=== PATIENT | male | born 1970 | race Caucasian/White ===

== ENCOUNTER 2022-02-11 07:24 | Day surgery (SDC) | payer BC ==
[2022-02-08 09:29] LABS: Absolute Lymphocytes (CBC) 1.7 K/uL (0.7-4.9); Hematocrit 41.3 % (39.6-49.0); Lymphocytes % 36.7 % (15.3-44.8); MCV 96.8 fL (80-100); MPV 7.5 fL (7.6-11.3); RBC Red Blood Cell Count 4.27 M/uL (4.33-5.43)
[2022-02-08 09:43] LABS: Potassium 4.2 mmol/L (3.5-5.1)
--- NOTE | 2022-02-08 09:54 | RAD REPORT ---
EXAM DESCRIPTION: RAD - Chest Pa And Lat (2 Views) - 02/08/2022 9:35 am CLINICAL HISTORY: pre op for colonoscopy Chest pain. COMPARISON: No comparisons FINDINGS: The lungs are clear. The heart is normal in size. No displaced fractures. Hardware is pres ent proximal left humerus. IMPRESSION: No acute or concerning finding suspected.
--- NOTE | 2022-02-08 15:54 | EKG ---
Test Date: 2022-02-08 Test Time: 09:14:38 Lot Porter: MEET MEASUREMENT RESULTS: Intervals: Rate: 68 [place]: 168 QRSD: 86 QT: 402 QTc: 427 [place]: P: 55 [place]: 168 QRS: 55 T: 54 INTERPRETIVE STATEMENTS: Normal sinus rhythm Normal ECG No previous ECG available for comparison Electronically Signed On 02-08-22 15:54:25 SENIOR NATIONAL ACCOUNT MANAGER by Joel Hodges
[2022-02-11] MEDS ORDERED: Ringers Lactate 1,000 ML IV ONE (07:43)
[2022-02-11] MEDS ORDERED: propofoL 200 MG/20 ML VIAL IV ONE (08:37)
--- NOTE | 2022-02-11 09:03 | ENDO RPT ---
[address], [address] COLONOSCOPY PROCEDURE REPORT EXAM DATE: 02/11/2022 PATIENT NAME: Ethan Vital MR #: [id number] BIRTHDATE: 1970 ATTENDING: Terry Mcbride M.D. STATUS: outpatient MEAT STUFFER: Hermila Sandoval RN and Renu Fraire CST INDICATIONS: The patient is a 51 yr old Male here for a colonoscopy due to colon cancer screening PROCEDURE PERFORMED: Colonoscopy MEDICATIONS: Per Anesthesia. ESTIMATED BLOOD LOSS: None CONSENT: The patient understands the risks and benefits of the procedure and understands that these risks include, but are not limited to: sedation, allergic reaction, infection, perforation and/or bleeding. Alternative means of evaluation and treatment include, among others: physical exam, x-rays, and/or surgical intervention. The patient elects to proceed with this endoscopic procedure. DESCRIPTION OF PROCEDURE: During intra-op preparation period all mechanical medical equipment was checked for proper function. Hand hygiene and appropriate measures for infection prevention was taken. Procedure, possible complications, alternatives including, but not limited to possibility of bleeding, perforation, tear, infection, sepsis, need for surgery, need for blood transfusion, were explained to the patient. After the risks, benefits and alternatives of the procedure were thoroughly explained, Informed consent was verified, confirmed and timeout was successfully executed by the treatment team. The patient was placed in the left lateral position. A digital rectal exam was performed and revealed no abnormalities of the rectum. After appropriate level of anesthesia, the scope was passed. The EC-[id number] ([id number]) endoscope was introduced through the anus and advanced to the cecum, which was identified by the ileocecal valve. The quality of the prep was fair. The instrument was then slowly withdrawn as the colon was fully examined. Scope withdrawal time was 10 minutes. COLON FINDINGS: A normal appearing cecum, ileocecal valve, and appendiceal orifice were identified. the ascending, transverse, descending, sigmoid colon, and rectum appeared unremarkable. Retroflexed views revealed no abnormalities. The scope was then completely withdrawn from the patient and the procedure terminated. ADVERSE EVENTS: There were no complications. IMPRESSIONS: A normal appearing cecum, ileocecal valve, and appendiceal orifice were identified. the ascending, transverse, descending, sigmoid colon, and rectum appeared unremarkable RECOMMENDATIONS: 1. fiber rich diet 2. increase dietary water RECALL: Return in 10 year(s) for Colonoscopy. Terry Mcbride M.D. eSigned: Terry Mcbride M.D. 02/11/2022 9:03 AM cc: Axel Del Rosario MD CPT CODES: ICD9 CODES: PATIENT NAME: ZahraaEthan MR#: [id number]
[2022-02-11 09:26] VITALS: BP 109/62; TEMP 97.5; O2SAT 99
== END 2022-02-11 09:31 | disposition home or self-care (01) ==
LOC: OR 07:24
PROVIDERS: ATTEND Surgery
PROC: 0DJD8ZZ Inspection of Lower Intestinal Tract, Via Natural or Artificial Opening Endoscopic (ICD-10-PCS; principal; 2022-02-11 09:15)
DX: Z12.11 Encounter for screening for malignant neoplasm of colon (principal); I10 Essential (primary) hypertension; G47.33 Obstructive sleep apnea (adult) (pediatric)
CPT/HCPCS: 93005; 85025; 80048; 36415; 71046; 45378; J2704; J7120

== ENCOUNTER 2022-08-07 06:24 | Day surgery (SDC) | payer BC ==
[2022-08-06 16:12] LABS: Absolute Lymphocytes (CBC) 2.3 K/uL (0.7-4.9); Hematocrit 45.2 % (39.6-49.0); Lymphocytes % 26.5 % (15.3-44.8); MCV 98.1 fL (80-100); MPV 8.3 fL (7.6-11.3); RBC Red Blood Cell Count 4.61 M/uL (4.33-5.43)
[2022-08-06 16:38] LABS: Potassium 3.9 mEq/L (3.5-5.1)
[2022-08-07] MEDS ORDERED: Ringers Lactate 1,000 ML IV ONE (06:37)
[2022-08-07] MEDS: CEFAZOLIN SODIUM 1 GM/VIAL ONE ×2 (07:03→07:35)
[2022-08-07] MEDS ORDERED: propofoL 200 MG/20 ML VIAL IV ONE (07:19)
[2022-08-07] MEDS ORDERED: MIDAZOLAM HCL 2 MG/2 ML INJ ONE (07:20)
[2022-08-07] MEDS ORDERED: FENTANYL CITR 100 MCG/2 ML ONE (07:20)
[2022-08-07] MEDS ORDERED: ONDANSETRON 4 MG/2 ML VIAL ONE (07:25)
[2022-08-07] MEDS ORDERED: LIDOCAINE 2% MPF 5 ML VIAL ONE ×2 (07:25→07:26)
--- NOTE | 2022-08-07 08:32 | P.BOP ---
Preoperative diagnosis: Left forearm infected SubQ mass 3x3cm Postoperative diagnosis: same Primary procedure: Excisional biopsy Left forearm infected SubQ mass 3x3cm Estimated blood loss: <10cc Specimen: mass Findings: cystc like mass per Dr Monroy. Frozen not done Anesthesia: General Complications: None Transferred to: Recovery Room Condition: Good
[2022-08-07 09:22] VITALS: BP 97/62; TEMP 97.8; O2SAT 96
== END 2022-08-07 09:52 | disposition home or self-care (01) ==
LOC: OR 06:24
PROVIDERS: ATTEND Surgery
PROC: 0HBEXZZ Excision of Left Lower Arm Skin, External Approach (ICD-10-PCS; principal; 2022-08-07 07:30)
DX: L72.8 Other follicular cysts of the skin and subcutaneous tissue (principal); L08.9 Local infection of the skin and subcutaneous tissue, unspecified
CPT/HCPCS: 36415; 80048; 85025; 88304; J0690; J2001; J2250; J2405; J2704; J3010; J7120

== ENCOUNTER 2024-04-08 09:19 | Day surgery (SDC) | payer BC ==
[2024-04-06 11:50] LABS: Absolute Basophils 0.1 K/uL (0-0.5); Absolute Eosinophils 0.1 K/uL (0-0.5); Absolute Lymphocytes (CBC) 2.1 K/uL (0.7-4.9); Absolute Monocytes 0.5 K/uL (0.1-1.3); Absolute Neutrophil 4.6 K/uL (1.8-8.0); Basophils % 0.8 % (0-1.3); Eosinophils % 1.1 % (0-4.4); Hematocrit 47.7 % (39.6-49.0); Hemoglobin 16.2 g/dL (13.6-17.9); Lymphocytes % 28.6 % (15.3-44.8); MCH 34.1 pg (27.0-35.0); MCHC 33.9 g/dL (32.0-36.0); MCV 100.5 fL (80-100); MPV 7.4 fL (7.6-11.3); Monocytes % 6.5 % (3.3-12.3); Nucleated Red Blood Cells % 0.1 % (0-0); Platelets 333 thou/uL (152-406); RBC Red Blood Cell Count 4.75 M/uL (4.33-5.43); Red Cell Distribution Width 13.3 % (12.1-15.2)
[2024-04-06 12:03] LABS: Anion Gap 6.3 mEq/L (5.0-15.0); Potassium 4.3 mEq/L (3.5-5.1)
[2024-04-08] MEDS: Ringers Lactate 1,000 ML IV ONE (09:40)
[2024-04-08] MEDS ORDERED: propofoL 200 MG/20 ML VIAL IV ONE ×2 (10:08→13:06)
[2024-04-08] MEDS ORDERED: LIDOCAINE 2% MPF 5 ML VIAL ONE (10:09)
[2024-04-08] MEDS ORDERED: LIDOCAINE HCL/EPINEPHRINE 20 ML MDV ONE (10:39)
[2024-04-08] MEDS ORDERED: FENTANYL CITR 100 MCG/2 ML ONE (13:25)
[2024-04-08] MEDS: BUPIVACAINE 0.25% PF 10 ML VIAL ONE (13:26)
[2024-04-08] MEDS ORDERED: dexAMETHasone 4 MG/ML VIAL ONE (13:31)
[2024-04-08] MEDS ORDERED: ONDANSETRON 4 MG/2 ML VIAL ONE (13:31)
[2024-04-08 14:39] VITALS: BP 117/74; TEMP 97.5; O2SAT 98
--- NOTE | 2024-04-12 11:04 | EKG ---
Test Date: 2024-04-06 Test Time: 12:37:20 [employer] Employee: MEET MEASUREMENT RESULTS: Intervals: Rate: 59 [place]: 168 QRSD: 86 QT: 422 QTc: 417 [place]: P: 64 [place]: 168 QRS: 54 T: 47 INTERPRETIVE STATEMENTS: Sinus bradycardia Otherwise normal ECG Compared to ECG 02/08/2022 09:14:38 Sinus rhythm no longer present Electronically Signed On 04-12-24 10:57:56 TEAMSITE DEVELOPER by Fermin Ho
--- NOTE | 2024-04-12 22:08 | OP ---
Date of Procedure: 04/08/2024 Surgeon: BRYCE HUMMEL Preoperative Diagnoses: 1.Chronic obstructive sleep apnea. 2.Ankyloglossia. Postoperative Diagnoses: 1.Chronic obstructive sleep apnea. 2.Ankyloglossia. Procedures: 1.Drug-induced sleep endoscopy. 2.Lingual frenulectomy. Anesthesia: General. IV propofol sedation was initially given followed by laryngeal mask airway. Estimated Blood Loss: Less than 2 mL. Specimens: None. Findings: Almost 100% predominant anterior/posterior velopharyngeal closure with no evidence of conc entric collapse and no evidence of lateral wall collapse. 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 Complications: None. Disposition: Stable. The patient tolerated procedure well. Indications For Procedure: The patient is a pleasant 53-year-old male with a history of chronic obst ructive sleep apnea, intolerant to CPAP therapy. On exam, patient also had difficulty with tongue pr otrusion secondary to tethered lingual frenulum. These were indications to bring the patient to the operating suite for the above-mentioned procedure. He understood, all questions were answered. Risk s versus benefits and complications were explained in detail and a consent form signed, was placed in the chart. Description Of Procedure: The patient was transferred from the preoperative holding area to the oper ative suite by Department of Anesthesia, placed on the operating table supine and sedated initially w ith IV propofol. Initially, 100 mg was given. the patient began to fall sleep. An additional 40-60 mg were given IV and the patient was completely asleep. A flexible laryngoscope was introduced into the right nasal cavity to velopharynx and held in place while recording for approximately 5 minutes. His airway was examined closely over this period of time and the patient clearly had predominant al most 100% anterior/posterior velopharyngeal collapse with no evidence of lateral wall or concentric c ollapse. The scope was completely withdrawn. Next, approximately 5 mL of 1% lidocaine with 100,000 epinephrine was infiltrated at the site of the lingual frenulum. The tethered frenulum was removed with curved iris scissors. A wedge of mucosa wa s removed and handed off the field. Hemostasis was achieved with eye cautery. The incisional edges were then reapproximated with 5-0 chromic gut suture in a continuous locking running fashion. The pa tient was then discharged back to Department of Anesthesia in stable condition, subsequently transfer red to PACU and discharged home to take [id number] analgesia medication. He will follow up in 1-2 weeks or sooner if needed. CORINNE/ISABELLA Voice ID: [id number] Report ID: [id number]
== END 2024-04-08 14:40 | disposition home or self-care (01) ==
LOC: OR 09:19
PROVIDERS: ATTEND Otolaryngology Facial Plastic Surgery
PROC: 0CJY8ZZ Inspection of Mouth and Throat, Via Natural or Artificial Opening Endoscopic (ICD-10-PCS; principal; 2024-04-08 10:30)
PROC: 0CB7XZZ Excision of Tongue, External Approach (ICD-10-PCS; 2024-04-08 10:30)
DX: Q38.1 Ankyloglossia (principal); G47.33 Obstructive sleep apnea (adult) (pediatric)
CPT/HCPCS: 93005; 85025; 80048; 36415; 42975; 41115; J2704; J1100; J3010; J2405; J7120; J2003

== ENCOUNTER 2024-05-06 06:54 | Day surgery (SDC) | payer BC ==
[2024-05-06] MEDS ORDERED: HYDROMORPHONE HCL 1 MG/ML INJ ONE (07:21)
[2024-05-06] MEDS ORDERED: ONDANSETRON 4 MG/2 ML VIAL ONE (07:25)
[2024-05-06] MEDS ORDERED: propofoL 200 MG/20 ML VIAL IV ONE (07:25)
[2024-05-06] MEDS ORDERED: LIDOCAINE 2% MPF 5 ML VIAL ONE (07:26)
[2024-05-06] MEDS ORDERED: MIDAZOLAM HCL 2 MG/2 ML INJ ONE (07:26)
[2024-05-06] MEDS ORDERED: FENTANYL CITR 100 MCG/2 ML ONE (07:26)
[2024-05-06] MEDS ORDERED: ROCURONIUM 50 MG/5 ML VIAL IV ONE (08:35)
[2024-05-06] MEDS: CEFAZOLIN SODIUM 2 GM/VIAL ONE (08:48)
[2024-05-06] MEDS: LIDOCAINE HCL/EPINEPHRINE 20 ML MDV ONE (08:50)
[2024-05-06] MEDS ORDERED: dexAMETHasone 10 MG/ML VIAL ONE (08:53)
[2024-05-06] MEDS ORDERED: EPHEDRINE SULF 50 MG/ML VIAL ONE (09:02)
[2024-05-06] MEDS ORDERED: Ringers Lactate 1,000 ML IV ONE (10:24)
[2024-05-06] MEDS: Ringers Lactate 1,000 ML IV ONE (10:27)
[2024-05-06] MEDS ORDERED: Mastisol Adhesive Liq ONE (11:42)
[2024-05-06] MEDS ORDERED: GLYCOPYRROLATE 0.2 MG/ML SYR ONE (11:42)
--- NOTE | 2024-05-06 12:45 | RAD REPORT ---
EXAMINATION: ONE VIEW CHEST XR CLINICAL INDICATION: Male, 53 years old.,S/P INSPIRE TECHNIQUE: Frontal chest projection is submitted. Examination is limited by patient positioning and t echnique. COMPARISON: 02/08/2022 FINDINGS: Right chest wall inspire device battery pack has been placed. Wire tracts cranially along the right s pablo of the neck, with no kinking or discontinuity. Bilateral perihilar hazy airspace opacities. Decreased inspiratory effort limits evaluation. No pneu mothorax or sizable effusion. The heart is normal in size. Mediastinal contours are unremarkable. IMPRESSION: Right chest wall inspire device as above. Bilateral central hazy opacities, could reflect central congestion or edema.
--- NOTE | 2024-05-06 12:48 | RAD REPORT ---
EXAMINATION: XR Neck Soft Tissue CLINICAL INDICATION: Male, 53 years old. S/P INSPIRE TECHNIQUE: 1 lateral view radiograph of the neck soft tissues were obtained. COMPARISON: No prior exam. FINDINGS: Inspire device electrode resides in the soft tissues of the floor of mouth, in satisfactor y position. Adjacent post operative changes. Upper airways patent. Prevertebral soft tissues are unremarkable. IMPRESSION: Satisfactory positioning of Inspire device electrode.
[2024-05-06 14:54] VITALS: BP 121/59; O2SAT 96
--- NOTE | 2024-05-07 12:31 | OP ---
Date of Procedure: 05/06/2024 Surgeon: BRYCE HUMMEL Preoperative Diagnoses: 1. Chronic obstructive sleep apnea, intolerant to CPAP use. 2. Body mass index 29.0-29.9, adult. 3. Other disorder of cranial nerves. Postoperative Diagnoses: 1. Chronic obstructive sleep apnea, intolerant to CPAP use. 2. Body mass index 29.0-29.9, adult. 3. Other disorder of cranial nerves. Procedures: 1. Neurostimulation of hypoglossal nerve with open implantation, pulse generator, and distal respiratory sensor electrode or electrode array. 2. Continuous intraoperative neurophysiology monitoring in the operating room. One on one monitoring requiring personal attendance each 15 minutes with a nerve integrity monitoring system, OwlTing ???. Anesthesia: General endotracheal anesthesia was administered. I also infiltrated approximately 10 mL of 1% lidocaine with 1:100,000 epinephrine into the right upper neck and right upper chest incisions. Findings: Large robust hypoglossal, hyoglossal, and genioglossal nerves and nerve branches. Specimens: None. Estimated Blood Loss: Less than 10 mL. Complications: None. Disposition: Stable. The patient tolerated the procedure well. Indication For Procedure: The patient is a pleasant 53-year-old male with chronic obstructive sleep apnea, who has been intolerant to CPAP use despite multiple attempts at utilization. These are indications to bring the patient to the operative suite for the above-mentioned procedure. He understood. All questions were answered. Risks versus benefits, complications were explained in detail and a consent form was signed, which was placed in the chart. Description Of Procedure: The patient was transferred from the preoperative holding area to the operative suite by primary anesthesia, placed on the operating table supine, sedated, and intubated in normal fashion. Table was rotated to 180 degrees, and a shoulder roll and head rest were placed. We extended and slightly rotated the head and neck back into the left in order to expose the right upper neck. The nerve integrity monitoring system and electrodes were placed into the body of the hyoglossus and genioglossus muscles, and we calibrated the electrodes as well as grounding electrodes to the patient and found that the probes were working adequately. Next, I infiltrated the neck and chest incision sites with 10 mL of 1% lidocaine with 1:100,000 epinephrine, and then the patient was sterilely prepped and draped. I made a modified submandibular incision in the right upper neck approximately 1 cm below the mandible, and dissection was carried down to the platysma muscle utilizing a #15 blade scalpel and monopolar electrocautery. Once through the platysma, I then switched to LigaSure for division of subcutaneous and subplatysmal tissue. Dissection was carried down to the anterior digastric tendon, which was easily visualized. I placed 2 throw down knots on the tendon with 2-0 silk, one medial and one slightly lateral. The submandibular gland and overlying fascia were then retracted posteriorly to keep it protected. The digastric tendon was retracted inferiorly, and dissection continued down to the digastric triangle, where the posterior inferior border of the mylohyoid was located and this was retracted superomedially with [employer] retractors. At this point, I was able to see hyoglossus and hypoglossal nerve branches as well as a C1 nerve branch located medially. We dissected the hypoglossal nerve up to the floor of the mouth and the superior and posterior branches innervating the hyoglossus were identified using the NIM stimulator with anatomical cues. The stimulator was then placed distally to the branches innervating the genioglossus, transverse, cervical, and vertical muscles. I was able to locate C1 branch, but due to the angle of its location, I was unable to include this in the cuff without causing tension and traction. Thus, the cuff was placed around the hypoglossal nerve branches excluding C1 and also excluding the hyoglossal branches, and the cuff was working appropriately. I secured 2 anchors to the digastric tendon with the previously placed throw down knots. The leads were then gently tightened deep to the submandibular gland. Saline was introduced in the cuff for appropriate electrode stimulation. Next, attention was placed to the chest where a 5 cm incision was made in the right upper chest over the second intercostal space through the epidermis down the subcutaneous tissue. The incision was approximately 3 cm lateral to the sternal margin. A #15 blade scalpel was used to initially carry this dissection down and then I switched to the LigaSure once to subcutaneous tissue and this was dissected down to the fascia of the pectoralis major muscle. Two throw down knots were placed superiorly into the pectoralis muscle function and then inferior pocket for the generator was created deep to the subcutaneous layer and superficial to the fossa of the pectoralis muscle. I then utilized retractors and LigaSure to dissect through the pectorals major muscle and minor muscles. I then was able to expose the fatty layer just superficial to the external intercostal muscles and the fatty layer was carefully swept away to expose the external intercostal muscle fascia. I was able to see the junction between the internal and external intercostal muscles. At this point, I made a small incision through the external intercostal fascia utilizing Rhodes and small scissors, and then I created a pocket through the external intercostal muscle fascia and dissected posterior row superiorly and once that was approximately the length of the respiratory generator lead. I then gently inserted the respiratory generator lead into the pocket and once the respiratory generator was secured, I was able to secure the anchor to the fascia of the muscles with a 2-0 silk suture. The secondary anchor was then sutured to the pectoralis major muscle allowing adequate slack between the anchors. At this point, the stimulation lead was then tunneled in a subplatysmal plane from the neck. I initially used tonsil dissectors and hemostats under direct visualization, and the tunneling device was then introduced into the same pocket and brought out from the neck incision to the chest pocket, where both the stimulation and respiratory sensing leads were located. These leads were then connected to the implant. I connected the lead to the implantable pulse generator using the 2 person 3-handed approach. The implantable pulse generator was then placed into the subcutaneous pocket ensuring that the lead body was deep to the generator and secured with the use of buried knots to the pectoralis fascia using 2-0 silk sutures. Diagnostic evaluation confirmed good placement of the stimulation cuff. Initially, we were unable to get adequate stimulation with the stimulator, but once the cuff was in place, we were able to test this and it was very good placement of the cuff. The patient has strong stiffening and protrusion of the tongue during testing and this was confirmed visually and through diagnostic evaluation. We confirmed good respiratory sensor lead placement, which demonstrated by sensing waveform with good rise and fall associated with the patient's respirations. Next, all wounds were thoroughly irrigated and closed in 3 layers with deep 3-0 Vicryl sutures in a simple interrupted fashion, followed by dermal layer closure in a simple interrupted fashion with 4-0 Monocryl suture, and then subcuticular epidermal closure with 4-0 Monocryl suture. Mastisol and Steri-Strips were applied, followed by compressive dressings. The patient was awakened, extubated, and transferred to the recovery room in stable condition. A stat AP chest and lateral neck x-ray were performed, which showed no evidence of pneumothorax and adequate placement of the implants and lead generators. There was no evidence of a hematoma. Thus, the patient was then discharged home the same day on antibiotic and analgesic medication, will follow up in 1 week or sooner if needed. CORINNE/ISABELLA Voice ID: [id number] Report ID: [id number] LISA
== END 2024-05-06 13:34 | disposition home or self-care (01) ==
LOC: OR 06:54
PROVIDERS: ATTEND Otolaryngology Facial Plastic Surgery
PROC: 0JH63MZ Insertion of Stimulator Generator into Chest Subcutaneous Tissue and Fascia, Percutaneous Approach (ICD-10-PCS; principal; 2024-05-06 08:32)
DX: G47.33 Obstructive sleep apnea (adult) (pediatric) (principal); G52.9 Cranial nerve disorder, unspecified; Z68.29 Body mass index [BMI] 29.0-29.9, adult
CPT/HCPCS: 64582; 71045; 70360; J2704; J2003; J2250; J3010; J1100; J1171; J2405; J7120 ×2